=== PATIENT | male | born 1995 | race Caucasian/White ===

== ENCOUNTER 2024-04-08 20:21 | Emergency (ER) | payer BC ==
[~2024-04-08] VITALS: Ht 170.2 cm; Wt 78.0 kg
[2024-04-08] MEDS ORDERED: DEXAMETHASON6 MG PO (22:58)
[2024-04-08] MEDS ORDERED: DEXAMETHASONE 2 MG/TAB TAB PO ONE (23:00)
[2024-04-08 23:26] VITALS: BP 130/86
== END 2024-04-08 23:26 | disposition home or self-care (01) | DRG 607 ==
LOC: ED 20:21
DX: L25.9 Unspecified contact dermatitis, unspecified cause (principal); Y99.0 Civilian activity done for income or pay